=== PATIENT | female | born 1985 | race Caucasian/White ===

== ENCOUNTER 2017-09-29 07:00 | Inpatient (IN) | payer MEDICAID ==
[2017-09-29] MEDS: LACTATED RINGER'S 1,000 ML IV ×2 (07:57→15:43)
[2017-09-29] MEDS ORDERED: LIDOCAINE 1% (MPF) 30 ML INJ INJ (08:00)
[2017-09-29] MEDS ORDERED: OXYTOCIN 30 UNITS/LR 500 ML IV ×2 (08:00→13:00)
[2017-09-29] MEDS ORDERED: MISOPROSTOL 200 MCG TAB PR ×2 (08:00→13:00)
[2017-09-29] MEDS ORDERED: METHYLERGONOVINE 0.2 MG INJ IM ×2 (08:00→13:00)
[2017-09-29] MEDS ORDERED: CARBOPROST 250 MCG INJ IM ×2 (08:00→13:00)
[2017-09-29] MEDS: AMPICILLIN 2 GM/NS (PMX) 100 ML IV (08:02)
[2017-09-29 08:39] LABS: WHITE BLOOD COUNT 10.4 10^3/ul (4.8-10.8)
[2017-09-29 08:39] LABS: ADD MAN DIFF? NO; BASOPHILS % 0.1 % (0.0-2.0); EOSINOPHILS % 0.4 % (0.0-7.0); HEMATOCRIT 39.8 % (37.0-47.0); LYMPHOCYTES # 1.7 10^3/ul (0.8-2.9); LYMPHOCYTES % 16.8 % (15.0-51.0); MEAN CORPUSCULAR HGB CONC 32.7 g/dl (32.0-37.0); MEAN CORPUSCULAR VOLUME 88.8 fl (82.0-101.0); MEAN PLATELET VOLUME 11.7 fl (7.4-10.4); MONOCYTE # 0.6 10^3/ul (0.3-0.9); MONOCYTES % 6.1 % (0.0-11.0); NEUTROPHIL # 7.9 10^3/ul (1.6-7.5); NEUTROPHILS % 75.9 % (39.0-77.0); PLATELET COUNT 269 10^3/UL (140-415); RED BLOOD COUNT 4.48 10^6/ul (4.20-5.40); RED CELL DISTRIBUTION WIDTH 14.1 % (11.5-14.5)
[2017-09-29] MEDS ORDERED: LACTATED RINGER'S 1,000 ML IV (08:57)
[2017-09-29 09:01] LABS: INR 0.98; PROTIME 13.1 Sec (11.9-14.9)
[2017-09-29 09:02] LABS: PARTIAL THROMBOPLASTIN TIME 31.9 Sec (25.0-35.0)
[2017-09-29] MEDS: BUTORPHANOL 2 MG INJ IV (09:05)
[2017-09-29] MEDS: OXYTOCIN 30 UNITS/LR 500 ML IV ×2 (10:43→11:15)
[2017-09-29 11:57] LABS: GLUCOSE 164 mg/dl (70-220)
[2017-09-29] MEDS ORDERED: AMPICILLIN 1 GM/NS (PMX) 50 ML IV (12:00)
[2017-09-29 12:25] LABS: HEPATITIS B SURFACE ANTIGEN NEGATIVE (NEGATIVE)
[2017-09-29] MEDS: OXYCODONE/ASPIRIN (4.88/325) TAB PO (12:49)
[2017-09-29] MEDS ORDERED: ZOLPIDEM 5 MG TAB PO (13:00)
[2017-09-29] MEDS ORDERED: LANOLIN 7 GM TUBE TOP (13:00)
[2017-09-29] MEDS ORDERED: GLUCAGON 1 MG INJ IM (16:00)
[2017-09-29] MEDS ORDERED: DEXTROSE 50% 50 ML SYRINGE IV ×2 (16:00)
[2017-09-29] MEDS ORDERED: GLUCOSE GEL 15 GRAM TUBE BUCCAL (16:00)
[2017-09-29] MEDS ORDERED: GLUCOSE GEL 15 GRAM TUBE PO ×2 (16:00)
[2017-09-29] MEDS: IBUPROFEN 600 MG TAB PO (17:28)
[2017-09-29] MEDS: ACCU-CHEK XX (20:29)
[2017-09-29] MEDS: metFORMIN (XR) 500 MG TAB PO (22:11)
[2017-09-29] MEDS: SENNA/DOCUSATE NA (8.6MG/50MG) TAB PO (22:11)
[2017-09-29] MEDS: WITCH HAZEL/GLYCERIN PAD PR (22:45)
[2017-09-29] MEDS: BENZOCAINE 20% 56 ML SPRAY TOP (22:45)
[2017-09-29 23:01] LABS: RAPID PLASMA REAGIN NONREACTIVE (NR)
[2017-09-30] MEDS: IBUPROFEN 600 MG TAB PO ×5 (00:31→23:35)
[2017-09-30] MEDS: ACCU-CHEK XX ×2 (08:00→10:45)
[2017-09-30 08:03] LABS: ADD MAN DIFF? NO
[2017-09-30 08:06] LABS: BASOPHILS % 0.2 % (0.0-2.0); EOSINOPHILS # 0.1 10^3/ul (0.0-0.5); EOSINOPHILS % 0.6 % (0.0-7.0); HEMATOCRIT 32.9 % (37.0-47.0); HEMOGLOBIN 10.9 g/dl (12.0-16.0); LYMPHOCYTES # 2.2 10^3/ul (0.8-2.9); LYMPHOCYTES % 22.9 % (15.0-51.0); MEAN CORPUSCULAR HEMOGLOBIN 29.5 pg (29.0-33.0); MEAN CORPUSCULAR HGB CONC 33.1 g/dl (32.0-37.0); MEAN CORPUSCULAR VOLUME 89.2 fl (82.0-101.0); MEAN PLATELET VOLUME 11.1 fl (7.4-10.4); MONOCYTE # 0.4 10^3/ul (0.3-0.9); MONOCYTES % 4.6 % (0.0-11.0); NEUTROPHIL # 6.8 10^3/ul (1.6-7.5); NEUTROPHILS % 71.2 % (39.0-77.0); PLATELET COUNT 236 10^3/UL (140-415); RED BLOOD COUNT 3.69 10^6/ul (4.20-5.40); RED CELL DISTRIBUTION WIDTH 13.9 % (11.5-14.5)
[2017-09-30 08:06] LABS: WHITE BLOOD COUNT 9.6 10^3/ul (4.8-10.8)
[2017-09-30] MEDS: OXYCODONE/ASPIRIN (4.88/325) TAB PO ×2 (08:52→18:21)
[2017-09-30] MEDS: metFORMIN (XR) 500 MG TAB PO ×2 (08:52→21:03)
[2017-09-30] MEDS: SENNA/DOCUSATE NA (8.6MG/50MG) TAB PO ×2 (08:52→21:03)
[2017-10-01] MEDS: IBUPROFEN 600 MG TAB PO ×2 (05:33→12:23)
[2017-10-01] MEDS: LACTATED RINGER'S 1,000 ML IV ×2 (07:43→15:43)
[2017-10-01] MEDS: ACCU-CHEK XX ×2 (08:10→10:45)
[2017-10-01] MEDS: metFORMIN (XR) 500 MG TAB PO (09:08)
[2017-10-01] MEDS: OXYCODONE/ASPIRIN (4.88/325) TAB PO (09:09)
[2017-10-01] MEDS: SENNA/DOCUSATE NA (8.6MG/50MG) TAB PO (09:09)
[2017-10-01] MEDS: DIPHTH/TET/ACEL PERTUSS (ADULT) 0.5 ML VIAL IM* (14:02)
== END 2017-10-01 16:45 | disposition home or self-care (01) | DRG 775 ==
LOC: OBT 07:00 → L-D 07:00 → OBT 07:49 → L-D 07:30 → PP1 12:28
PROVIDERS: Obstetrics & Gynecology
PROC: 10E0XZZ Delivery of Products of Conception, External Approach (ICD-10-PCS; principal; 2017-09-29)
PROC: 3E033VJ Introduction of Other Hormone into Peripheral Vein, Percutaneous Approach (ICD-10-PCS; 2017-09-29)
DX: O60.14X0 Preterm labor third trimester with preterm delivery third trimester, not applicable or unspecified (principal); Z3A.36 36 weeks gestation of pregnancy; Z37.0 Single live birth
CPT/HCPCS: 71046; 82947; 82962; 85025; 85610; 85730; 86592; 86850; 86900; 86901; 87340; 90715; 99464

== ENCOUNTER 2017-12-12 13:55 | Day surgery (SDC) | payer MEDICAID ==
[2017-12-12] MEDS ORDERED: CEFAZOLIN 2 GM/50 ML (PMX) 50 ML IVPB (14:30)
[2017-12-12] MEDS ORDERED: BUPIVACAINE 0.25%/EPI (SDV) 30 ML INJ (15:02)
[2017-12-12 15:12] LABS: ADD MAN DIFF? NO
[2017-12-12 15:14] LABS: BASOPHILS % 0.5 % (0.0-2.0); EOSINOPHILS # 0.1 10^3/ul (0.0-0.5); EOSINOPHILS % 0.7 % (0.0-7.0); HEMATOCRIT 38.3 % (37.0-47.0); HEMOGLOBIN 12.8 g/dl (12.0-16.0); LYMPHOCYTES # 2.6 10^3/ul (0.8-2.9); LYMPHOCYTES % 30.9 % (15.0-51.0); MEAN CORPUSCULAR HEMOGLOBIN 29.8 pg (29.0-33.0); MEAN CORPUSCULAR HGB CONC 33.4 g/dl (32.0-37.0); MEAN CORPUSCULAR VOLUME 89.1 fl (82.0-101.0); MEAN PLATELET VOLUME 11.1 fl (7.4-10.4); MONOCYTE # 0.7 10^3/ul (0.3-0.9); MONOCYTES % 8.2 % (0.0-11.0); NEUTROPHILS % 59.5 % (39.0-77.0); PLATELET COUNT 266 10^3/UL (140-415); RED CELL DISTRIBUTION WIDTH 13.5 % (11.5-14.5)
[2017-12-12 15:14] LABS: WHITE BLOOD COUNT 8.4 10^3/ul (4.8-10.8)
== END 2017-12-12 15:50 | disposition home or self-care (01) ==
LOC: SDS 13:55
DX: Z30.2 Encounter for sterilization (principal); Z53.8 Procedure and treatment not carried out for other reasons
CPT/HCPCS: 85025

== ENCOUNTER 2018-01-05 14:20 | Day surgery (SDC) | payer MEDICAID ==
[~2018-01-05 14:20] MED LIST: CEFAZOLIN 2 GM/50 ML (PMX) 50 ML IVPB; LACTATED RINGER'S 1,000 ML IV*
[2018-01-05] MEDS ORDERED: LACTATED RINGER'S 1,000 ML IV (15:04)
[2018-01-05] MEDS ORDERED: LABETALOL HCL 20MG INJ IV (15:30)
[2018-01-05] MEDS ORDERED: ONDANSETRON 4 MG INJ IV (15:30)
[2018-01-05] MEDS ORDERED: MEPERIDINE 25 MG INJ IV (15:30)
[2018-01-05] MEDS ORDERED: PROCHLORPERAZINE 10 MG INJ IV (15:30)
[2018-01-05] MEDS ORDERED: DIPHENHYDRAMINE 50 MG INJ IV (15:30)
[2018-01-05] MEDS ORDERED: hydrALAzine 20 MG INJ IV (15:30)
[2018-01-05] MEDS ORDERED: CEFAZOLIN 2 GM/50 ML (PMX) 50 ML IVPB (15:30)
[2018-01-05] MEDS ORDERED: HYDROmorphONE 1 MG/5 ML IV SYRINGE IV ×3 (15:30)
[2018-01-05] MEDS ORDERED: FENTAnyl 50 MCG/ML VIAL IV ×2 (15:30)
[2018-01-05 15:55] LABS: ADD MAN DIFF? NO
[2018-01-05 16:01] LABS: BASOPHIL # 0.1 10^3/ul (0.0-0.1); BASOPHILS % 0.7 % (0.0-2.0); EOSINOPHILS # 0.1 10^3/ul (0.0-0.5); EOSINOPHILS % 1.1 % (0.0-7.0); HEMATOCRIT 38.2 % (37.0-47.0); HEMOGLOBIN 12.6 g/dl (12.0-16.0); LYMPHOCYTES # 2.6 10^3/ul (0.8-2.9); LYMPHOCYTES % 35.5 % (15.0-51.0); MEAN CORPUSCULAR HEMOGLOBIN 29.3 pg (29.0-33.0); MEAN CORPUSCULAR VOLUME 88.8 fl (82.0-101.0); MEAN PLATELET VOLUME 10.9 fl (7.4-10.4); MONOCYTE # 0.5 10^3/ul (0.3-0.9); MONOCYTES % 7.1 % (0.0-11.0); NEUTROPHIL # 4.1 10^3/ul (1.6-7.5); NEUTROPHILS % 55.3 % (39.0-77.0); PLATELET COUNT 270 10^3/UL (140-415); RED CELL DISTRIBUTION WIDTH 13.9 % (11.5-14.5)
[2018-01-05 16:01] LABS: WHITE BLOOD COUNT 7.3 10^3/ul (4.8-10.8)
[2018-01-05] MEDS ORDERED: FENTAnyl 50 MCG/ML VIAL (16:11)
[2018-01-05] MEDS ORDERED: MIDAZOLAM 1 MG/ML 2 ML INJ (16:11)
[2018-01-05] MEDS ORDERED: LIDOCAINE 2% (SDV) 5 ML INJ (16:16)
[2018-01-05] MEDS ORDERED: ROCURONIUM 50 MG INJ (16:16)
[2018-01-05] MEDS ORDERED: SUCCINYLCHOLINE CHLORIDE 100 MG/5 ML SYG IV (16:16)
[2018-01-05] MEDS ORDERED: CEFAZOLIN 1 GM INJ (16:16)
[2018-01-05] MEDS ORDERED: PROPOFOL 20 ML (16:16)
[2018-01-05 16:18] LABS: INR 1.01; PROTIME 13.4 Sec (11.9-14.9)
[2018-01-05 16:19] LABS: PARTIAL THROMBOPLASTIN TIME 27.5 Sec (25.0-35.0)
[2018-01-05] MEDS ORDERED: ROPIVACAINE 0.5 % 30 ML VIAL (16:22)
[2018-01-05] MEDS ORDERED: EPHEDrine SULFATE 50 MG/5 ML SYG (16:42)
[2018-01-05] MEDS ORDERED: DEXAMETHASONE 4 MG/ML 1 ML INJ (16:47)
[2018-01-05] MEDS ORDERED: FAMOTIDINE 20 MG INJ (16:47)
[2018-01-05] MEDS ORDERED: ONDANSETRON 4 MG INJ (16:47)
[2018-01-05] MEDS: BUPIVACAINE 0.25%/EPI (MDV) 50 ML VIAL INJ (16:51)
[2018-01-05] MEDS ORDERED: SUGAMMADEX SODIUM 200 MG/2 ML VIAL IV (17:33)
[2018-01-05] MEDS ORDERED: KETOROLAC 30 MG INJ (17:35)
[2018-01-05] MEDS ORDERED: BUTORPHANOL 2 MG INJ IM (18:00)
[2018-01-05] MEDS ORDERED: DOXYCYCLINE 100 MG TAB PO (18:00)
[2018-01-05] MEDS: FENTAnyl 50 MCG/ML VIAL IV (18:20)
[2018-01-05] MEDS: OXYCODONE/ACETAMINOPHEN (5/325) TAB PO (19:41)
== END 2018-01-05 19:40 | disposition home or self-care (01) ==
LOC: SDS 14:20
DX: Z30.2 Encounter for sterilization (principal)
CPT/HCPCS: 58670; 85025; 85610; 85730

== ENCOUNTER 2018-01-06 23:09 | Emergency (ER) | payer MEDICAID ==
[2018-01-07] MEDS: SOD CHLORIDE 0.9% 1,000 ML IV (00:11)
[2018-01-07] MEDS: ONDANSETRON 4 MG INJ IV (00:11)
[2018-01-07] MEDS: morphine 4 MG/ML VIAL IV (00:12)
[2018-01-07 00:20] LABS: ADD MAN DIFF? NO
[2018-01-07 00:30] LABS: WHITE BLOOD COUNT 9.8 10^3/ul (4.8-10.8)
[2018-01-07 00:31] LABS: BASOPHILS % 0.3 % (0.0-2.0); EOSINOPHILS # 0.1 10^3/ul (0.0-0.5); EOSINOPHILS % 0.6 % (0.0-7.0); HEMATOCRIT 37.5 % (37.0-47.0); HEMOGLOBIN 12.1 g/dl (12.0-16.0); LYMPHOCYTES # 3.7 10^3/ul (0.8-2.9); LYMPHOCYTES % 38.2 % (15.0-51.0); MEAN CORPUSCULAR HEMOGLOBIN 29.4 pg (29.0-33.0); MEAN CORPUSCULAR HGB CONC 32.3 g/dl (32.0-37.0); MEAN CORPUSCULAR VOLUME 91.2 fl (82.0-101.0); MEAN PLATELET VOLUME 11.4 fl (7.4-10.4); MONOCYTE # 0.7 10^3/ul (0.3-0.9); MONOCYTES % 6.8 % (0.0-11.0); NEUTROPHIL # 5.3 10^3/ul (1.6-7.5); NEUTROPHILS % 53.9 % (39.0-77.0); PLATELET COUNT 255 10^3/UL (140-415); RED BLOOD COUNT 4.11 10^6/ul (4.20-5.40); RED CELL DISTRIBUTION WIDTH 13.8 % (11.5-14.5)
[2018-01-07 00:52] LABS: ALANINE AMINOTRANSFERASE 191 IU/L (13-69); ALBUMIN 4.3 g/dl (3.3-4.9); ALBUMIN/GLOBULIN RATIO 1.26; ALKALINE PHOSPHATASE 147 IU/L (42-121); ANION GAP 13 (8-16); ASPARTATE AMINO TRANSFERASE 128 IU/L (15-46); BILIRUBIN,INDIRECT 0.5 mg/dl (0-1.1); BILIRUBIN,TOTAL 0.5 mg/dl (0.2-1.3); BLOOD UREA NITROGEN 16 mg/dl (7-20); CARBON DIOXIDE 28 mmol/L (21-31); CHLORIDE 104 mmol/L (97-110); CREATININE 0.71 mg/dl (0.44-1.00); GLUCOSE 137 mg/dl (70-220); LIPASE 135 U/L (23-300); POTASSIUM 3.7 mmol/L (3.5-5.1); SODIUM 141 mmol/L (135-144); TOTAL PROTEIN 7.7 g/dl (6.1-8.1)
[2018-01-07] MEDS: HYDROmorphONE 0.5 MG/0.5 ML SYG IV (01:20)
[2018-01-07] MEDS: SOD CHLORIDE 0.9% 100 ML (01:51)
[2018-01-07] MEDS: IOHEXOL 300MG/ML 150 ML BTL (01:51)
== END 2018-01-07 04:31 | disposition home or self-care (01) ==
LOC: E/R 23:09
DX: N99.89 Other postprocedural complications and disorders of genitourinary system (principal); Z79.84 Long term (current) use of oral hypoglycemic drugs
CPT/HCPCS: 36415; 74177; 80053; 81025; 83690; 85025; 96374; 96375; 99285-25